=== PATIENT | male | born 1935 | race Two or more races ===

== ENCOUNTER 2020-01-18 12:49 | Inpatient (IN) | payer OTHER ==
[~2020-01-18] VITALS: Ht 165.1 cm; Wt 172.0 kg
--- NOTE | 2020-01-18 13:14 | NUR ---
FAMILIAR REFIERE QUE [facility] EL [facility]ALI DE [facility]ON FUE [facility] DONDE FUE ATENDIDO Y ADMITIDO EL HIJO REFIERE QUE SE DESORIENTO Y SE FUE DEL HOSPITAL SIN QUE NADIE SE DIERA CUENTA EL HIJO LO ENCONTRO Y REFIERE QUE NO VUELVE A [facility] AQUI SE CHARLES S/V Y SE UBICA EN AREA DE OBSERVACION PARA SER EVALUADO POR DR EN TURNO
--- NOTE | 2020-01-18 14:01 | NUR ---
SE EDUCA A PTE SOBRE [place] [facility] M[facility] REFIERE ENTENDER. FAMILIAR REFIERE PTE SE ENCUENTRA DESORIENTADO. SE CHARLES MUESTRAS DE LAB UTILIZANDO MEDIDAS ASEPTICAS. SE COLOCA H/L A PTE EL CUAL SE ENCUENTRA PATENTE Y BERNIE DE EDEMA. SE CLOCA IV FLUIDS A PTE. SE COLOCA COPIA DE ORDEN 408 EN RECORD DE PTE ENTREGADA POR FAMILIAR. PTE SE CONTINUA MONITORIANDO POR CAMBIOS.
--- NOTE | 2020-01-18 15:37 | NUR ---
PT ALERTA Y ORIENTADO X3 ESFERAS SE RECIBE EN MAGDA COMPANIA DE FAMILIAR. EN COMPANIA DE FAMILIAR. HEPARIN LOCK E IVFLUIDS PATENTES. PENDIENTE LLEVAR A RADIOLOGIA POR ESTUDIO PENDIENTE. PT TRANQUILO Y SIN DIFICULTAD RESPIRATORIA. SE MANTIENE BAJO OBSERVACION POR CAMBIOS EN [place]IR[place].
[2020-01-18] MEDS ORDERED: SIMVASTATIN40 MG PO (18:06)
[2020-01-18] MEDS ORDERED: RAMIPRIL10 MG PO (18:06)
[2020-01-18] MEDS ORDERED: GABAPENTIN400 MG PO (18:06)
[2020-01-18] MEDS ORDERED: OMEPRAZOLE40 MG PO (18:06)
== END 2020-01-22 14:14 | disposition home or self-care (01) | DRG 65 ==
LOC: ER 12:49 → MEDI 18:39
PROVIDERS: ADMIT Internal Medicine; ATTEND Internal Medicine
PROC: B030ZZZ Magnetic Resonance Imaging (MRI) of Brain (ICD-10-PCS; 2020-01-18)
PROC: BW28ZZZ Computerized Tomography (CT Scan) of Head (ICD-10-PCS; 2020-01-18)
PROC: B345ZZZ Ultrasonography of Bilateral Common Carotid Arteries (ICD-10-PCS; 2020-01-18)
PROC: B24BZZZ Ultrasonography of Heart with Aorta (ICD-10-PCS; principal; 2020-01-19)
DX: I63.89 Other cerebral infarction (principal); E85.4 Organ-limited amyloidosis; I68.0 Cerebral amyloid angiopathy; I10 Essential (primary) hypertension; E78.5 Hyperlipidemia, unspecified; I69.322 Dysarthria following cerebral infarction; Z20.828 Contact with and (suspected) exposure to other viral communicable diseases
CPT/HCPCS: 70551

== ENCOUNTER 2020-01-29 11:48 | Emergency (ER) | payer OTHER ==
[~2020-01-29] VITALS: Ht 167.6 cm; Wt 77.1 kg
[~2020-01-29 11:48] MED LIST: GABAPENTIN400 MG PO; OMEPRAZOLE40 MG PO; RAMIPRIL10 MG PO; SIMVASTATIN40 MG PO
[2020-01-29] MEDS ORDERED: NORVASC5 MG (12:04)
[2020-01-29] MEDS ORDERED: SEROQUEL25 MG (12:04)
[2020-01-29] MEDS ORDERED: PROTONIX40 MG (12:05)
[2020-01-29] MEDS ORDERED: PLAVIX75 MG (12:05)
== END 2020-01-29 21:45 | disposition home or self-care (01) ==
LOC: ER 11:48
DX: G40.802 Other epilepsy, not intractable, without status epilepticus (principal); Z03.818 Encounter for observation for suspected exposure to other biological agents ruled out